=== PATIENT | male | born 1975 | race Caucasian/White ===

== ENCOUNTER 2021-09-22 17:58 | Emergency (ER) | payer OTHER ==
[2021-09-23 17:10] LABS: SARS-CoV-2 PCR by NAA Not Detected (NotDetected)
== END 2021-09-22 19:40 | disposition home or self-care (01) ==
LOC: CSHERS 17:58
DX: B34.9 Viral infection, unspecified (principal); Z20.822 Contact with and (suspected) exposure to COVID-19
CPT/HCPCS: 99284; U0003; U0005

== ENCOUNTER 2023-08-29 15:21 | Outpatient (CLI) | payer OTHER ==
[2023-08-29 16:03] LABS: Hematocrit 48.2 % (38.8-50.0); Hemoglobin 16.4 g/dL (13.5-17.5); Mean Corpuscular Hemoglobin 29.8 pg (27.0-33.0); Mean Corpuscular Volume 87.5 fl (81.2-95.1); Mean Platelet Volume 9.9 fl (7.4-10.4); Platelet Count 240 10x3/uL (150-450); RBC Distribution Width 11.9 % (11.5-14.5); Red Blood Cell (RBC) Count 5.51 10x6/uL (4.32-5.72); White Blood Cell (WBC) Count 6.4 10x3/uL (3.5-10.5)
[2023-08-29 16:15] LABS: Anion Gap 13 mmol/L (10-20); BUN (Urea Nitrogen) 13 mg/dL (8.9-20.6); Calc. Creatinine Clearance 0 mL/min (70-130); Calcium 9.3 mg/dL (7.8-10.44); Carbon Dioxide 28 mmol/L (22-29); Chloride 101 mmol/L (98-107); Estimated GFR 103; Glucose 163 mg/dL (70-105); Potassium 4.2 mmol/L (3.5-5.1); Sodium 138 mmol/L (136-145)
== END 2023-08-29 15:22 | disposition home or self-care (01) ==
LOC: CSHLAB 15:21
PROVIDERS: ATTEND Podiatrist Foot & Ankle Surgery
DX: Z01.812 Encounter for preprocedural laboratory examination (principal); M20.12 Hallux valgus (acquired), left foot
CPT/HCPCS: 80048; 85027

== ENCOUNTER 2023-09-01 10:07 | Day surgery (SDC) | payer OTHER ==
[2023-08-29 15:43] VITALS: BMI 22.9
[2023-09-01] MEDS ORDERED: Ropivacaine 0.2% 550 ML 550 ML NERVE BLCK SCH (11:15)
[2023-09-01] MEDS ORDERED: Zolpidem Tartrate 5 MG TAB PO PRN (11:15)
[2023-09-01] MEDS ORDERED: Ondansetron PF 4 MG/2 ML Vial IVP PRN (11:15)
[2023-09-01] MEDS ORDERED: Promethazine HCl 25 MG/ML VIAL IM PRN (11:15)
[2023-09-01] MEDS ORDERED: CEFAZOLIN 2 GM VIAL ONE (13:14)
[2023-09-01] MEDS ORDERED: Bupivacaine PF 0.5% 30 ML VIAL ONE (13:38)
[2023-09-01] MEDS ORDERED: PROPOFOL 20 ML ONE (15:00)
[2023-09-01] MEDS ORDERED: fentaNYL 50 mcg/mL 1 mL Vial ONE (15:00)
[2023-09-01] MEDS ORDERED: Famotidine/PF 20 mg/2ml Vial ONE (15:08)
[2023-09-01] MEDS ORDERED: Lidocaine 2% PF 5 ML VIAL ONE (15:11)
[2023-09-01] MEDS ORDERED: Dexamethasone 4 mg/ml Vial ONE (15:19)
[2023-09-01] MEDS ORDERED: Ondansetron PF 4 MG/2 ML Vial ONE (15:19)
[2023-09-01] MEDS ORDERED: Metoclopramide HCl 10 MG (2 mL) VIAL ONE (15:19)
[2023-09-01] MEDS ORDERED: Ketorolac Tromethamine 30 MG (1 mL) VIAL ONE (15:33)
[2023-09-01] MEDS ORDERED: PHENYLEPHRINE-NS 100 MCG/ML 10 ML SYRINGE ONE ×2 (15:42→16:44)
[2023-09-01] MEDS ORDERED: ePHEDrine Sulfate 50 MG/10 ML VIAL ONE (15:50)
[2023-09-01] MEDS ORDERED: Sevoflurane 250 ML INH ANEST BOTTLE ONE (16:46)
== END 2023-09-01 18:15 | disposition home or self-care (01) ==
LOC: CSHSDC 10:07
PROVIDERS: ATTEND Podiatrist Foot & Ankle Surgery
PROC: 0SGN04Z Fusion of Left Metatarsal-Phalangeal Joint with Internal Fixation Device, Open Approach (ICD-10-PCS; principal; 2023-09-01)
DX: M20.12 Hallux valgus (acquired), left foot (principal); M21.612 Bunion of left foot; F15.90 Other stimulant use, unspecified, uncomplicated; J30.2 Other seasonal allergic rhinitis; Z79.899 Other long term (current) drug therapy
CPT/HCPCS: A4306; C1713; C1776; J1100; J1885; J2001; J2405; J2704; J2765; J2795; J3010; S0020; S0028

== ENCOUNTER 2023-09-02 16:56 | Emergency (ER) | payer OTHER ==
[2023-09-02] MEDS ORDERED: Bacitracin 1 PK ONE (17:49)
[2023-09-02] MEDS ORDERED: HYDROcodone/Acetaminophen 10/325 mg Tablet ONE (17:50)
== END 2023-09-02 19:10 | disposition home or self-care (01) ==
LOC: CSHERS 16:56
DX: L76.22 Postprocedural hemorrhage of skin and subcutaneous tissue following other procedure (principal)
CPT/HCPCS: 99283